=== PATIENT | female | born 1940 | race Caucasian/White ===

== ENCOUNTER 2018-05-22 17:29 | Emergency (ER) | payer MEDICARE, OTHER ==
[2018-05-22 17:53] VITALS: BP 173/67
--- NOTE | 2018-05-22 18:20 | UC ---
Head Injury HPI - HPI Summary HPI Summary: The patient is a 78-year-old female who presents here for evaluation of a head injury. She was walking up some stone steps when some be started buzzing around her right leg. She lost her balance and fell backwards. Her fall was approximately 4 feet. He struck the back of her head on one of the stone steps. She also injured her left buttocks. She has a mild headache. She states was no loss of consciousness. She has had no dizziness. She denies any nausea or vomiting. He currently has a 4 out of 10 headache. She is being anticoagulated for A. fib. She is able to ambulate without assistance. She denies any hip pain. She suspects her tetanus shot is up-to-date. - History Of Current Complaint Chief Complaint: UCHeadInjury Stated Complaint: HEAD INJURY/PT FELL Time Seen by Provider: 05/22/18 18:00 Hx Obtained From: Patient Onset/Duration: Sudden Onset, Lasting Hours Severity Currently: Mild Severity Initially: Moderate Pain Intensity: 4 Pain Scale Used: 0-10 Numeric Character: Throbbing Aggravating Factor(s): Nothing Alleviating Factor(s): Nothing Associated Signs And Symptoms: Negative: LOC (Time In Secs./Mins/Hrs), Confusion , Memory Loss, Seizure, Epistaxis, Dental Malocclusion, Neck Pain, Nausea, Vomiting Head: 1 - abrasion/no active bleeding - Allergies/Home Medications Allergies/Adverse Reactions: Allergies Allergy/AdvReac Type Severity Reaction Status Date / Time meperidine [From Demerol] Allergy Vomiting Verified 05/22/18 17:54 anti-HTN med Allergy Dizziness Uncoded 05/22/18 17:54 Home Medications: Home Medications Acetaminophen [Acetaminophen Extra Strength] 1 - 2 tab PO QPM PRN 05/22/18 [ History Confirmed 05/22/18] Apixaban* [Eliquis*] 5 mg PO BID 05/22/18 [History Confirmed 05/22/18] Ascorbic Acid TAB* [Vitamin C TAB*] 500 mg PO DAILY 05/22/18 [History Confirmed 05/22/18] Cholecalciferol TAB* [Vitamin D TAB*] 1,000 unit PO BID 05/22/18 [History Confirmed 05/22/18] Conjugated Estrogens TAB* [Premarin TAB*] 0.625 mg PO DAILY 05/22/18 [History Confirmed 05/22/18] Lutein/Zeaxanthin [Ocuvite Lutein 25-5 mg Softgel] 1 each PO SEE INSTRUCTIONS [History Confirmed 05/22/18] Magnesium Oxide [Magnesium] 500 mg PO QPM 05/22/18 [History Confirmed 05/22/18] Nature Made Super B Complex 1 tab PO SEE INSTRUCTIONS 05/22/18 [History Confirmed 05/22/18] Pantoprazole Sodium 1 tab PO DAILY PRN 05/22/18 [History Confirmed 05/22/18] Quinapril HCl 40 mg PO BID 05/22/18 [History Confirmed 05/22/18] Sotalol TAB* [Betapace 80 MG TAB*] 120 mg PO BID 05/22/18 [History Confirmed 06/01] amLODIPine TAB* [Norvasc 5 mg TAB*] 5 mg PO QPM 05/22/18 [History Confirmed 06/01] hydrALAZINE TAB* [Apresoline TAB*] 10 mg PO BID 05/22/18 [History Confirmed 06/01] PMH/Surg Hx/FS Hx/Imm Hx Other Endocrine History: hyperparathyroidism Cardiovascular History: Hypertension, Atrial Fibrillation - Surgical History Surgical History: Yes Surgery Procedure, Year, and Place: see - Family History Known Family History: Positive: Hypertension - Social History Alcohol Use: None Substance Use Type: None Smoking Status (MU): Former Smoker When Did the Patient Quit Smoking/Using Tobacco: 1965 - Immunization History Most Recent Tetanus Shot: Unknown Review of Systems Constitutional: Negative Skin: Negative Eyes: Negative ENT: Negative Respiratory: Negative Cardiovascular: Negative Gastrointestinal: Negative Genitourinary: Negative Motor: Negative Neurovascular: Negative Musculoskeletal: Negative Neurological: Headache Psychological: Negative Is Patient Immunocompromised?: No All Other Systems Reviewed And Are Negative: Yes Physical Exam Triage Information Reviewed: Yes Appearance: Well-Appearing, No Pain Distress, Well-Nourished, Other: - ambulatory with normal gait Vital Signs: Initial Vital Signs Temp 98.4 F 05/22/18 17:44 Pulse 60 08/08/18 17:44 Resp 20 05/22/18 17:44 BP 173/67 05/22/18 17:44 Pulse Ox 99 05/22/18 17:44 Vital Signs Reviewed: Yes Eyes: Positive: Conjunctiva Clear, Other: - eomi/perrl ENT: Positive: Hearing grossly normal, Sinus tenderness, Other. Negative: Nasal congestion, Nasal drainage, Tonsillar exudate, Trismus, Hoarse voice, Dental tenderness Dental Exam: Normal Neck: Positive: Supple, Nontender, No Lymphadenopathy Respiratory: Positive: Lungs clear, Normal breath sounds, No respiratory distress Cardiovascular: Positive: No Murmur. Negative: Tachycardia Abdomen Description: Positive: Nontender Musculoskeletal: Positive: ROM Intact, No Edema Neurological: Positive: Alert, Other: - GCS 15/15, CN 2-12 intact, strenght 5/5 Psychological Exam: Normal Skin Exam: Other - abrasions as noted Diagnostics - Radiology No standard instances Xray Interpretation: No Acute Changes - No CT evidence for intracranial hemorrhage or other acute intracranial process Radiology Interpretation Completed By: Radiologist Head Injury Course/Dx - Differential Dx/Diagnosis Provider Diagnoses: scalp contusion and abrasion. left forearm abrasion. left buttock contusion Discharge - Sign-Out/Discharge Documenting (check all that apply): Patient Departure - Discharge Plan Condition: Stable Disposition: HOME Patient Education Materials: Head Injury (ED), Contusion in Adults (ED), Abrasion (ED) Referrals: No Primary Care Phys,NOPCP [Primary Care Provider] - Additional Instructions: recheck in 4-7 days if not better rest tylenol - Billing Disposition and Condition Condition: STABLE Disposition: Home Images Front/Back of Body, Lg (Shannon): 1 - abrasion 2 - hematoma
--- NOTE | 2018-05-22 19:04 | RAD ---
Indication: Head injury with laceration to back of head. Fall. Anticoagulated. Comparison: No relevant prior exams available on the [facility] PACS for comparison. Technique: Noncontrast CT vertex of skull through foramen magnum. Report: The sulci, ventricles, and basal cisterns are normal for age. Griffin matter white matter differentiation is preserved without evidence for edema. Decreased density in the periventricular and subcortical white matter while non-specific is most likely due to chronic microangiopathy. No intra or extra axial hemorrhage, mass, or fluid collection detected. Unremarkable visualized orbital contents. No evidence for calvarial or skull base fracture. Negative for suspicious focal osseous lesions. Unremarkable scalp. The visualized paranasal sinuses and mastoid air spaces are clear. IMPRESSION: #. No CT evidence for intracranial hemorrhage or other acute intracranial process. #. Stigmata of chronic small vessel ischemic disease.
== END 2018-05-22 19:29 | disposition home or self-care (01) ==
LOC: UCCORT 17:29
DX: S00.01XA Abrasion of scalp, initial encounter (principal); S50.812A Abrasion of left forearm, initial encounter; S30.0XXA Contusion of lower back and pelvis, initial encounter; W10.9XXA Fall (on) (from) unspecified stairs and steps, initial encounter; Y93.01 Activity, walking, marching and hiking; Y92.9 Unspecified place or not applicable; I48.91 Unspecified atrial fibrillation; Z79.01 Long term (current) use of anticoagulants; Z88.8 Allergy status to other drugs, medicaments and biological substances; Z87.891 Personal history of nicotine dependence
CPT/HCPCS: 70450; 99202; G0463